=== PATIENT | female | born 1945 | race Caucasian/White ===

== ENCOUNTER 2017-06-02 16:44 | Inpatient (IN) | payer MEDICARE, OTHER ==
[2017-06-02 20:05] LABS: MODE ROOM AIR; MetHgb Venous 1.1 %; Sample Type Blood venous; Site VENOUS LINE; Venous COHb 0.3 %; Venous Fraction OxyHgb 23.5 %; Venous Oxygen Sat 23.8 mmHG (55.0-75.0); Venous Total Hemglobin 11.9 g/dl
[2017-06-02 20:10] LABS: ADD MAN DIFF? NO
[2017-06-02 20:13] LABS: BASOPHILS % 0.4 % (0.0-2.0); EOSINOPHILS # 0.1 10^3/ul (0.0-0.5); EOSINOPHILS % 0.6 % (0.0-7.0); HEMATOCRIT 33.2 % (37.0-47.0); HEMOGLOBIN 11.2 g/dl (12.0-16.0); LYMPHOCYTES # 1.8 10^3/ul (0.8-2.9); LYMPHOCYTES % 17.9 % (15.0-51.0); MEAN CORPUSCULAR HEMOGLOBIN 26.8 pg (29.0-33.0); MEAN CORPUSCULAR HGB CONC 33.7 g/dl (32.0-37.0); MEAN CORPUSCULAR VOLUME 79.4 fl (82.0-101.0); MEAN PLATELET VOLUME 8.2 fl (7.4-10.4); MONOCYTE # 0.8 10^3/ul (0.3-0.9); MONOCYTES % 7.5 % (0.0-11.0); NEUTROPHIL # 7.4 10^3/ul (1.6-7.5); NEUTROPHILS % 72.9 % (39.0-77.0); PLATELET COUNT 350 10^3/UL (140-415); RED BLOOD COUNT 4.18 10^6/ul (4.20-5.40); RED CELL DISTRIBUTION WIDTH 14.2 % (11.5-14.5)
[2017-06-02 20:13] LABS: WHITE BLOOD COUNT 10.1 10^3/ul (4.8-10.8)
[2017-06-02] MEDS: SOD CHLORIDE 0.9% 1,000 ML IV (20:33)
[2017-06-02] MEDS: ONDANSETRON 4 MG INJ IV (20:33)
[2017-06-02] MEDS: morphine 4 MG/ML VIAL IV (20:33)
[2017-06-02 20:36] LABS: ALANINE AMINOTRANSFERASE 33 IU/L (13-69); ALBUMIN 4.3 g/dl (3.3-4.9); ALKALINE PHOSPHATASE 158 IU/L (42-121); ANION GAP 18 (8-16); ASPARTATE AMINO TRANSFERASE 23 IU/L (15-46); BILIRUBIN,INDIRECT 0.2 mg/dl (0-1.1); BILIRUBIN,TOTAL 0.2 mg/dl (0.2-1.3); BLOOD UREA NITROGEN 35 mg/dl (7-20); CALCIUM 10.1 mg/dl (8.4-10.2); CARBON DIOXIDE 23 mmol/L (21-31); CHLORIDE 92 mmol/L (97-110); CREATININE 2.23 mg/dl (0.44-1.00); GLUCOSE 360 mg/dl (70-220); LIPASE 90 U/L (23-300); POTASSIUM 4.4 mmol/L (3.5-5.1); SODIUM 129 mmol/L (135-144); TOTAL PROTEIN 8.8 g/dl (6.1-8.1)
[2017-06-02 20:37] LABS: ALBUMIN/GLOBULIN RATIO 0.95
[2017-06-02 20:46] LABS: ADD UMIC YES; UR ASCORBIC ACID NEGATIVE (NEGATIVE); UR BACTERIA FEW /HPF (NONE SEEN); UR BILIRUBIN (Dip) NEGATIVE (NEGATIVE); UR BLOOD (Dip) 3+ mg/dL (NEGATIVE); UR CLARITY CLOUDY (CLEAR); UR COLOR YELLOW (YELLOW); UR GLUCOSE (Dip) 3+ mg/dL (NEGATIVE); UR KETONES (Dip) NEGATIVE (NEGATIVE); UR LEUKOCYTE ESTERASE (Dip) 3+ Leu/ul (NEGATIVE); UR NITRITE (Dip) NEGATIVE (NEGATIVE); UR RBC 7 /HPF (0-5); UR SPECIFIC GRAVITY (Dip) 1.007 (1.003-1.030); UR SQUAMOUS EPITHELIAL CELL FEW /HPF (FEW); UR TOTAL PROTEIN (Dip) NEGATIVE (NEGATIVE); UR UROBILINOGEN (Dip) NEGATIVE (NEGATIVE); UR WBC > 182 /HPF (0-5)
[2017-06-02] MEDS ORDERED: ONDANSETRON 4 MG INJ IV (23:00)
[2017-06-02] MEDS ORDERED: ACETAMINOPHEN 325 MG TAB PO (23:00)
[2017-06-02 23:23] LABS: LACTIC ACID 1.6 mmol/L (0.5-2.0)
[2017-06-02] MEDS: CEFTRIAXONE 1 GM/50 ML (PMX) 50 ML IVPB (23:40)
[2017-06-02] MEDS ORDERED: GLUCOSE GEL 15 GRAM TUBE BUCCAL (23:45)
[2017-06-02] MEDS ORDERED: DEXTROSE 50% 50 ML SYRINGE IV ×2 (23:45)
[2017-06-02] MEDS ORDERED: GLUCOSE GEL 15 GRAM TUBE PO ×2 (23:45)
[2017-06-02] MEDS ORDERED: GLUCAGON 1 MG INJ IM (23:45)
[2017-06-02] MEDS: SODIUM CHLORIDE 0.9% 1L BAG IV* (23:47)
[2017-06-02 23:52] LABS: HEMOGLOBIN A1C 11.4 % (0-5.9)
[2017-06-03] MEDS ORDERED: CEFTRIAXONE 1 GM/50 ML (PMX) 50 ML IVPB
[2017-06-03] MEDS ORDERED: ONDANSETRON 4 MG TAB PO
[2017-06-03] MEDS ORDERED: HYDROCODONE/APAP (5/325) TAB PO
[2017-06-03] MEDS ORDERED: ONDANSETRON 4 MG INJ IV
[2017-06-03] MEDS ORDERED: NACL 0.9% 3 ML SYG IV
[2017-06-03 01:09] LABS: LACTIC ACID 1.6 mmol/L (0.5-2.0)
[2017-06-03] MEDS: INSULIN LISPRO 100 UNIT/ML VIAL SC (01:30)
[2017-06-03] MEDS: ACCU-CHEK XX (02:00)
[2017-06-03 02:56] LABS: LACTIC ACID 1.5 mmol/L (0.5-2.0)
[2017-06-03] MEDS: INSULIN GLARGINE [LANtus] 3 ML PEN SC ×2 (03:18→17:31)
[2017-06-03 05:46] LABS: ADD MAN DIFF? NO
[2017-06-03 06:02] LABS: WHITE BLOOD COUNT 10.2 10^3/ul (4.8-10.8)
[2017-06-03 06:02] LABS: BASOPHIL # 0.1 10^3/ul (0.0-0.1); BASOPHILS % 0.5 % (0.0-2.0); EOSINOPHILS # 0.1 10^3/ul (0.0-0.5); HEMATOCRIT 29.6 % (37.0-47.0); HEMOGLOBIN 10.2 g/dl (12.0-16.0); LYMPHOCYTES # 1.3 10^3/ul (0.8-2.9); LYMPHOCYTES % 13.1 % (15.0-51.0); MEAN CORPUSCULAR HEMOGLOBIN 27.3 pg (29.0-33.0); MEAN CORPUSCULAR HGB CONC 34.5 g/dl (32.0-37.0); MEAN CORPUSCULAR VOLUME 79.4 fl (82.0-101.0); MEAN PLATELET VOLUME 8.6 fl (7.4-10.4); MONOCYTE # 0.8 10^3/ul (0.3-0.9); MONOCYTES % 7.7 % (0.0-11.0); NEUTROPHIL # 7.9 10^3/ul (1.6-7.5); NEUTROPHILS % 76.9 % (39.0-77.0); PLATELET COUNT 306 10^3/UL (140-415); RED BLOOD COUNT 3.73 10^6/ul (4.20-5.40); RED CELL DISTRIBUTION WIDTH 14.6 % (11.5-14.5)
[2017-06-03 06:11] LABS: ANION GAP 15 (8-16); BLOOD UREA NITROGEN 30 mg/dl (7-20); CALCIUM 9.3 mg/dl (8.4-10.2); CARBON DIOXIDE 25 mmol/L (21-31); CHLORIDE 98 mmol/L (97-110); CREATININE 1.81 mg/dl (0.44-1.00); GLUCOSE 270 mg/dl (70-220); MAGNESIUM 1.9 mg/dl (1.7-2.5); PHOSPHORUS 3.5 mg/dl (2.5-4.9); POTASSIUM 5.3 mmol/L (3.5-5.1); SODIUM 133 mmol/L (135-144)
[2017-06-03] MEDS: INSULIN ASPART [NOVOLOG] 3 ML PEN SC ×4 (08:00→21:24)
[2017-06-03] MEDS: morphine 2 MG INJ IV ×2 (08:06→17:34)
[2017-06-03] MEDS: AMLODIPINE 5 MG TAB PO (08:06)
[2017-06-03] MEDS: ENOXAPARIN 40 MG/0.4 ML SYG SC (09:01)
[2017-06-03] MEDS: SOD CHLORIDE 0.45% 1,000 ML IV (17:22)
[2017-06-03] MEDS ORDERED: INSULIN GLARGINE [LANtus] 3 ML PEN SC ×2 (20:00→21:00)
[2017-06-03] MEDS: ATORVASTATIN 20 MG TAB PO (21:12)
[2017-06-03] MEDS: CEFTRIAXONE 1 GM/50 ML (PMX) 50 ML IVPB (23:53)
[2017-06-04] MEDS: SOD CHLORIDE 0.45% 1,000 ML IV ×4 (01:30→17:40)
[2017-06-04] MEDS: ACETAMINOPHEN 325 MG TAB PO ×2 (01:34→21:30)
[2017-06-04] MEDS: morphine 2 MG INJ IV (01:34)
[2017-06-04] MEDS: ACCU-CHEK XX (01:50)
[2017-06-04] MEDS: POLYETHYLENE GLYCOL 17 GM PACKET PO (05:39)
[2017-06-04 06:11] LABS: ADD MAN DIFF? NO
[2017-06-04 06:17] LABS: BASOPHILS % 0.4 % (0.0-2.0); EOSINOPHILS # 0.1 10^3/ul (0.0-0.5); EOSINOPHILS % 1.1 % (0.0-7.0); HEMATOCRIT 27.6 % (37.0-47.0); HEMOGLOBIN 9.3 g/dl (12.0-16.0); LYMPHOCYTES # 1.5 10^3/ul (0.8-2.9); MEAN CORPUSCULAR HEMOGLOBIN 26.6 pg (29.0-33.0); MEAN CORPUSCULAR HGB CONC 33.7 g/dl (32.0-37.0); MEAN CORPUSCULAR VOLUME 79.1 fl (82.0-101.0); MEAN PLATELET VOLUME 8.4 fl (7.4-10.4); MONOCYTE # 0.7 10^3/ul (0.3-0.9); MONOCYTES % 9.2 % (0.0-11.0); NEUTROPHILS % 68.8 % (39.0-77.0); PLATELET COUNT 264 10^3/UL (140-415); RED BLOOD COUNT 3.49 10^6/ul (4.20-5.40); RED CELL DISTRIBUTION WIDTH 14.6 % (11.5-14.5)
[2017-06-04 06:17] LABS: WHITE BLOOD COUNT 7.3 10^3/ul (4.8-10.8)
[2017-06-04 06:50] LABS: ANION GAP 16 (8-16); BLOOD UREA NITROGEN 30 mg/dl (7-20); CALCIUM 8.8 mg/dl (8.4-10.2); CARBON DIOXIDE 22 mmol/L (21-31); CHLORIDE 98 mmol/L (97-110); CREATININE 1.61 mg/dl (0.44-1.00); GLUCOSE 233 mg/dl (70-220); POTASSIUM 4.9 mmol/L (3.5-5.1); SODIUM 131 mmol/L (135-144)
[2017-06-04] MEDS: AMLODIPINE 5 MG TAB PO (08:00)
[2017-06-04] MEDS: ENOXAPARIN 40 MG/0.4 ML SYG SC (08:16)
[2017-06-04] MEDS: INSULIN ASPART [NOVOLOG] 3 ML PEN SC ×6 (08:16→21:00)
[2017-06-04] MEDS: BISACODYL (EC) 5 MG TAB PO (12:20)
[2017-06-04] MEDS: INSULIN GLARGINE [LANtus] 3 ML PEN SC ×2 (12:25→21:33)
[2017-06-04 16:48] LABS: ALBUMIN 3.1 g/dL (3.8-4.8); ALPHA-1-GLOBULINS 0.5 g/dL (0.2-0.3); ALPHA-2-GLOBULINS 1.2 g/dL (0.5-0.9); BETA 2 GLOBULINS 0.6 g/dL (0.2-0.5); BETA GLOBULINS 0.5 g/dL (0.4-0.6); GAMMA GLOBULINS 1.2 g/dL (0.8-1.7)
[2017-06-04] MEDS: ATORVASTATIN 20 MG TAB PO (21:30)
[2017-06-05] MEDS: CEFTRIAXONE 1 GM/50 ML (PMX) 50 ML IVPB (00:30)
[2017-06-05] MEDS: ACCU-CHEK XX (01:52)
[2017-06-05] MEDS: SOD CHLORIDE 0.45% 1,000 ML IV (04:53)
[2017-06-05 07:06] LABS: ANION GAP 18 (8-16); BLOOD UREA NITROGEN 28 mg/dl (7-20); CARBON DIOXIDE 24 mmol/L (21-31); CHLORIDE 100 mmol/L (97-110); CREATININE 1.49 mg/dl (0.44-1.00); GLUCOSE 158 mg/dl (70-220); POTASSIUM 4.5 mmol/L (3.5-5.1); SODIUM 137 mmol/L (135-144)
[2017-06-05] MEDS: AMLODIPINE 5 MG TAB PO (08:09)
[2017-06-05] MEDS: ENOXAPARIN 30 MG/0.3 ML SYG SC (08:13)
[2017-06-05] MEDS: INSULIN ASPART [NOVOLOG] 3 ML PEN SC ×6 (08:14→17:32)
[2017-06-05] MEDS: ACETAMINOPHEN 325 MG TAB PO (14:46)
== END 2017-06-05 17:45 | disposition home or self-care (01) | DRG 690 ==
LOC: MS2 22:55 → E/R 16:44
PROVIDERS: Internal Medicine
DX: N12 Tubulo-interstitial nephritis, not specified as acute or chronic (principal); N17.9 Acute kidney failure, unspecified; E11.65 Type 2 diabetes mellitus with hyperglycemia; E87.5 Hyperkalemia; Z91.19 Patient's noncompliance with other medical treatment and regimen; E66.9 Obesity, unspecified; Z68.33 Body mass index [BMI] 33.0-33.9, adult; N39.0 Urinary tract infection, site not specified; I10 Essential (primary) hypertension; E78.5 Hyperlipidemia, unspecified; K59.00 Constipation, unspecified
CPT/HCPCS: 36415; 74176; 80048; 80053; 81001; 82803; 82962; 83036; 83605; 83690; 83735; 84100; 84155; 84165; 85025; 87040; 96374; 96375; 99285-25

== ENCOUNTER 2017-12-27 14:27 | Emergency (ER) | payer MEDICARE, OTHER | END 2017-12-27 15:55 | disposition home or self-care (01) | LOC: FTE 14:27 | DX: J06.9 Acute upper respiratory infection, unspecified (principal); I10 Essential (primary) hypertension; E11.9 Type 2 diabetes mellitus without complications; Z79.4 Long term (current) use of insulin | CPT/HCPCS: 99282 ==